=== PATIENT | male | born 1985 | race Two or more races ===

== ENCOUNTER 2020-06-23 16:59 | Outpatient (REF) | payer OTHER, SELFPAY | END 2020-06-23 17:00 | disposition home or self-care (01) | LOC: HO.LAB 16:59 | PROVIDERS: Visit Provider Internal Medicine | DX: Z20.828 Contact with and (suspected) exposure to other viral communicable diseases (principal) | CPT/HCPCS: 87635 ==

== ENCOUNTER 2020-07-28 11:59 | Outpatient (REF) | payer OTHER, SELFPAY | END 2020-07-28 12:00 | disposition home or self-care (01) | LOC: HO.LAB 11:59 | PROVIDERS: PCP Internal Medicine; Visit Provider Internal Medicine | DX: Z20.828 Contact with and (suspected) exposure to other viral communicable diseases (principal) | CPT/HCPCS: C9803; U0003 ==

== ENCOUNTER 2020-08-26 07:21 | Outpatient (REF) | payer OTHER, SELFPAY | END 2020-08-26 07:22 | disposition home or self-care (01) | LOC: HO.LAB 07:21 | PROVIDERS: Visit Provider Internal Medicine | DX: Z20.828 Contact with and (suspected) exposure to other viral communicable diseases (principal) | CPT/HCPCS: C9803; U0003 ==

== ENCOUNTER 2020-09-29 11:48 | Outpatient (REF) | payer OTHER, SELFPAY | END 2020-09-29 11:49 | disposition home or self-care (01) | LOC: HO.LAB 11:48 | PROVIDERS: Visit Provider Internal Medicine | DX: Z20.822 Contact with and (suspected) exposure to COVID-19 (principal) | CPT/HCPCS: 36415; C9803; U0003; U0005 ==

== ENCOUNTER 2021-05-23 09:47 | Outpatient (REF) | payer OTHER, SELFPAY | END 2021-05-23 09:48 | disposition home or self-care (01) | LOC: HO.LAB 09:47 | PROVIDERS: PCP Internal Medicine; Visit Provider Internal Medicine | DX: Z20.822 Contact with and (suspected) exposure to COVID-19 (principal) | CPT/HCPCS: C9803; U0003; U0005 ==

== ENCOUNTER 2021-08-18 21:29 | Emergency (ER) | payer OTHER, SELFPAY ==
[2021-08-18 22:14] VITALS: BP 137/88; PULSE 98; RESP 16; TEMP 36.9; O2SAT 99; BMI 30.7
[2021-08-18 23:11] LABS: COVID-19 Test Positive (Negative)
--- NOTE | 2021-08-18 23:19 | ED_ITS ---
HPI - General Adult General Chief complaint: General Medical Stated complaint: fever, not feeling well Source: patient Mode of arrival: ambulatory Limitations: no limitations History of Present Illness HPI narrative: 36-year-old male presents with upper respiratory symptoms that started on Sunday. Is requesting COVID-19 testing. Onset (ago): day(s) Severity: mild Relieving factors: none Associated symptoms: cough, fever/chills, headaches and malaise Treatments prior to arrival: none Related Data Previous Rx's Medication Instructions Recorded levofloxacin 750 mg tablet 750 mg PO DAILY #10 tab 01/31/21 montelukast 10 mg tablet 10 mg PO DAILY #30 tab 01/31/21 prednisone 10 mg tablet 10 mg PO DAILY #30 tab 01/31/21 Allergies Allergy/AdvReac Type Severity Reaction Status Date / Time penicillin V Allergy Unknown hives Verified 01/31/21 14:35 Review of Systems Review of Systems: Constitutional: positive Fever, positive Chills, positive fatigue, positive Malaise ENT/Mouth: positive sore throat, positive runny nose Eyes: No Discharge Cardiovascular: No Chest Pain, No SOB Respiratory: Positive Cough, No Sputum, No Wheezing, No Smoke Exposure, No Dyspnea Gastrointestinal: No Nausea, No Vomiting, No Diarrhea Genitourinary: no irregular bleeding, No Dysuria, No Urinary Frequency, No Hem aturia, No Urinary Incontinence, No Urgency, No Flank Pain, Musculoskeletal: positive Myalgia Skin: No rash Neuro: Positive Headache Yes all other systems are reviewed and are negative PMFSH Past Medical History Attestation statement: The following information was validated with the patient. Source: old records reviewed Medical History Allergies Annual physical exam Sinusitis Social History Social History Advance Directives: No Physical Exam Vital Signs: Vital Signs: Last Vital Signs Temp 98.4 F 08/18/21 22:14 Pulse 98 08/18/21 22:14 Resp 16 08/18/21 22:14 BP 137/88 08/18/21 22:14 Pulse Ox 99 08/18/21 22:14 BMI result Body Mass Index 30.7 Appearance: Alert. Oriented X3. No acute distress. Eyes: Pupils equal, round and reactive to light. ENT: Pharynx normal. Nasal congestion. Neck: Normal inspection. Neck supple. CVS: Normal heart rate and rhythm. Pulses normal. Respiratory: No respiratory distress. Breath sounds normal. Abdomen: Soft and nontender. Skin: Skin warm and dry. Normal skin color. Normal skin turgor. Extremities: No lower extremity edema. Gait well-balanced well coordinated. Neuro: No motor deficit. No sensory deficit. Cranial nerves 2-12 intact. Course Course Course Narrative: 36-year-old male presents with upper respiratory symptoms consistent COVID-19 that started on Sunday. Requesting COVID-19 testing. COVID positive. Patient is afebrile, vital signs are stable and within normal limits. O2 sat 99% on room air, even unlabored respirations. Able to speak in complete sentences. Appears nontoxic. Will discharge home with supportive measures instructions. Patient verbalized understanding of and agrees to care discharge home. Medical Decision Making Differential Diagnosis Differential Diagnosis: COVID-19, influenza, pharyngitis, pneumonia Medical Records Medical records reviewed: Yes I reviewed the patient's medical records. Lab Data Lab results reviewed: Yes I reviewed the patient's lab results. Labs: Lab Results 08/18/21 Range/Units 22:20 COVID-19 (ANDREAS) Positive A (Negative) COVID-19 Clin Com See Note Discharge Plan Discharge Clinical Impression: COVID-19 Patient Disposition: Home, Self-Care Instructions: Covid-19 Viral Syndrome and Novel Coronavirus (ED) Hey/Ath, COVID-19 (Coronavirus Disease 2019) (ED) Additional Instructions: You were evaluated for upper respiratory symptoms. Your COVID test was positive. Please maintain social isolation per State and Federal guidelines. Use supportive measures, Tylenol 650 mg every 6 hours and Motrin 600 mg every 6 hours as needed for fever and muscle aches. You may consider using [id number] cough medications please pay attention to the ingredients to make sure that you are not overdosing on Tylenol. Tylenol is also called acetaminophen. Drink plenty of fluids. Thank you for choosing this emergency department for evaluation. Please follow-up with primary care physician as needed. Return to the emergency department for any new, concerning, or worsening symptoms. Prescriptions: No Action levofloxacin 750 mg tablet 750 mg PO DAILY Qty: 10 RF: 0 prednisone 10 mg tablet 10 mg PO DAILY Qty: 30 RF: 0 montelukast 10 mg tablet 10 mg PO DAILY Qty: 30 RF: 3 Stand Alone Forms: Work/School Release Interventions: ED Discharge Assessment Last Done: 08/19/21 00:32 Discharge Date/Time: 08/19/21 00:33
== END 2021-08-19 00:33 | disposition home or self-care (01) ==
PROVIDERS: Emergency Provider Internal Medicine; PCP Internal Medicine
DX: U07.1 COVID-19 (principal)
CPT/HCPCS: 36415; 87635; 99283

== ENCOUNTER 2022-08-10 07:18 | Outpatient (REF) | payer OTHER, SELFPAY ==
[2022-08-10 11:26] LABS: MANUAL DIFF FLAG NO
[2022-08-10 11:39] LABS: Basophils Absolute Auto 0.1 X10*3/uL (0.0-0.2); Basophils Percent Auto 0.6 % (0-2); Eosinophils Absolute Auto 0.2 X10*3/uL (0.0-0.4); Eosinophils Percent Auto 2.2 % (0-4); Hematocrit 44.5 % (42.0-52.0); Hemoglobin 15.2 g/dl (14.0-18.0); Imm Gran Abs Auto 0.06 X10*3/uL (0.00-0.03); Imm Gran Pct Auto 0.6 % (0.0-0.4); Lymphocytes Absolute Auto 2.3 X10*3/uL (1.2-4.9); Lymphocytes Percent Auto 24.6 % (20-40); Mean Corpuscular HGB Conc 34.2 g/dl (31.0-36.0); Mean Corpuscular Hemoglobin 29.6 pg (27.0-33.0); Mean Corpuscular Volume 86.7 fL (80.0-98.0); Mean Platelet Volume 10.4 fL (9.4-12.4); Monocytes Absolute Auto 0.7 X10*3/uL (0.1-1.2); Platelet Count 244 X10*3/uL (160-400); Red Blood Count 5.13 X10*6/uL (4.60-5.80); Red Cell Distribution Width 13.2 % (11.0-16.0); White Blood Count 9.3 X10*3/uL (4.8-10.8)
[2022-08-10 13:07] LABS: Alanine Aminotransferase 40 U/L (0-40); Albumin Level 4.2 g/dL (3.5-5.0); Alkaline Phosphatase 62 U/L (39-117); Anion Gap 10 (12-20); Aspartate Amino Transferase 23 U/L (5-37); Bilirubin Total 0.3 mg/dL (0.0-1.0); Blood Urea Nitrogen 13 mg/dL (9-16); Calcium 9.3 mg/dL (8.4-10.2); Carbon Dioxide 28 mmol/L (22-29); Chloride 106 mmol/L (96-108); Cholesterol 225 mg/dL; Estimated Glomerular Filt Rate > 60; Glucose Fasting 96 mg/dL (60-99); HDL Cholesterol 40 mg/dL; LDL Cholesterol Calculated 172 mg/dl; Potassium 4.2 mmol/L (3.3-5.1); Sodium 140 mmol/L (135-145); TSH reflex Free T4 1.64 uIU/mL (0.32-4.0); Total Protein 6.6 g/dL (6.5-8.0); Triglycerides 65 mg/dL
== END 2022-08-10 07:19 | disposition home or self-care (01) ==
LOC: HO.HMGCLDS 07:18
PROVIDERS: PCP Internal Medicine; Visit Provider Internal Medicine
DX: Z00.00 Encounter for general adult medical examination without abnormal findings (principal); E03.9 Hypothyroidism, unspecified
CPT/HCPCS: 36415; 80053; 80061; 84443; 85025

== ENCOUNTER 2022-09-04 08:45 | Outpatient (REF) | payer OTHER, SELFPAY ==
--- NOTE | ~2022-09-04 | XR_ITS ---
EXAMINATION: XR knee LT 2V, XR knee standing BI CLINICAL INFORMATION: Pain in the. History of surgical fixation of distal femoral fracture, left side. COMPARISON: Left femur radiograph 08/04/2019. TECHNIQUE: AP standing bilateral knees and lateral and sunrise view left knee. FINDINGS: AP standing radiograph: Clothing artifact limits detail. The AP view of the right knee is normal without joint space narrowing. The AP view of the left knee shows distal femoral roosevelt and locking screws with mild heterotopic ossification adjacent to the distal femoral screw medially at the level of the medial femoral condyle without change. No significant joint space narrowing is seen but osteophytes are present in the intercondylar notch and at the tibial spines and lateral joint margin. Heterotopic ossification is seen in the soft tissues medial to the proximal tibia. Left knee: Additional views of the left knee partially visualized the distal femoral roosevelt. No joint space narrowing or acute osseous abnormality is seen on the views provided. No evidence of joint effusion. Heterotopic ossification is seen in the soft tissues posterior to the proximal lower leg. XR/XR knee standing BI IMPRESSION: 1. Normal alignment. No acute osseous abnormality is seen. Unchanged degenerative changes are seen in the left knee 2. The right knee is unremarkable.
--- NOTE | ~2022-09-04 | XR_ITS ---
EXAMINATION: XR knee LT 2V, XR knee standing BI CLINICAL INFORMATION: Pain in the. History of surgical fixation of distal femoral fracture, left side. COMPARISON: Left femur radiograph 08/04/2019. TECHNIQUE: AP standing bilateral knees and lateral and sunrise view left knee. FINDINGS: AP standing radiograph: Clothing artifact limits detail. The AP view of the right knee is normal without joint space narrowing. The AP view of the left knee shows distal femoral roosevelt and locking screws with mild heterotopic ossification adjacent to the distal femoral screw medially at the level of the medial femoral condyle without change. No significant joint space narrowing is seen but osteophytes are present in the intercondylar notch and at the tibial spines and lateral joint margin. Heterotopic ossification is seen in the soft tissues medial to the proximal tibia. Left knee: Additional views of the left knee partially visualized the distal femoral roosevelt. No joint space narrowing or acute osseous abnormality is seen on the views provided. No evidence of joint effusion. Heterotopic ossification is seen in the soft tissues posterior to the proximal lower leg. XR/XR knee LT 2V IMPRESSION: 1. Normal alignment. No acute osseous abnormality is seen. Unchanged degenerative changes are seen in the left knee 2. The right knee is unremarkable.
== END 2022-09-04 08:46 | disposition home or self-care (01) ==
LOC: HO.HOSX 08:45
PROVIDERS: Visit Provider Orthopaedic Surgery
DX: M17.32 Unilateral post-traumatic osteoarthritis, left knee (principal)
CPT/HCPCS: 73560; 73565; 99202

== ENCOUNTER → 2023-02-05 12:01 | Outpatient (REF) | payer OTHER, MEDICAID, SELFPAY | LOC: HO.SL 12:01 | PROVIDERS: PCP Internal Medicine; Visit Provider Internal Medicine | DX: R06.81 Apnea, not elsewhere classified (principal) | CPT/HCPCS: 95806 ==

== ENCOUNTER 2025-05-04 15:52 | Emergency (ER) | payer OTHER, SELFPAY ==
--- NOTE | ~2025-05-04 | US_ITS ---
CLINICAL HISTORY: pain, swelling, concern for DVT Venous duplex ultrasound right lower extremity Comparison: None provided Findings: The visualized deep veins are fully compressible with normal Doppler color flow and spectral tracings. No popliteal cyst. Prominent lymph nodes noted in the right groin measuring 3.8 x 0.8 x 2.8 cm, may be reactive however are nonspecific IMPRESSION: 1. Negative for right lower extremity deep vein thrombosis. This document has been electronically signed by: Oliver De Souza MD on 05/04/2025 18:36:38
[2025-05-04 16:19] VITALS: BP 152/91; PULSE 84; RESP 16; TEMP 36.9; O2SAT 99; BMI 33.0
--- NOTE | 2025-05-04 16:19 | ED_ITS ---
HPI - General Adult General Chief complaint: Extremity Injury, Lower Stated complaint: right leg pain (? bloodclot), swollen, red Time Seen by Provider: 05/04/25 18:46 Source: patient Mode of arrival: ambulatory Limitations: no limitations History of Present Illness ED Provider: Debby Purcell PA-C HPI narrative: Patient is a 39 year old assigned male at with a history of anxiety, HLD, allergies, osteoarthritis of knee presenting to the emergency department today with right knee pain. Patient states that the pain is behind his knee and started yesterday. Patient reports his right leg is swollen and red. Patient reports a fever of 101 last night. Patient denies any trauma, injury, or any other symptoms. Related Data Previous Rx's ?Medication ?Instructions ?Recorded doxycycline hyclate 100 mg tablet 100 mg PO BID 7 days #14 tabs 05/04/25 Allergies Allergy/AdvReac Type Severity Reaction Status Date / Time penicillin V Allergy Unknown hives Verified 05/04/25 16:20 Review of Systems Constitutional: Constitutional: Reports as per HPI Eyes: Eyes: Reports as per HPI ENT: Reports as per HPI Cardiovascular: Cardiovascular: Reports as per HPI Respiratory: Respiratory: Reports as per HPI Gastrointestinal: Gastrointestinal: Reports as per HPI Genitourinary: Genitourinary: Reports as per HPI Musculoskeletal: Musculoskeletal: Reports as per HPI Integumentary/Breasts: Skin/Breast: Reports as per HPI Neurologic: Reports as per HPI Psychiatric: Psychiatric: Reports as per HPI Endocrine: Endocrine: Reports as per HPI Hematologic/Lymphatic: Hematologic/Lymphatic: Reports as per HPI Allergic/Immunologic: Allergic/Immunologic: Reports as per HPI [facility] Past Medical History Attestation statement: The following information was validated with the patient. Source: old records reviewed and nursing notes reviewed Medical History Post-traumatic osteoarthritis of knee Annual physical exam Sinusitis Allergies Social History Social History Household Members Other:: , children 7-18, works as adame Housing: House Patient Tobacco Use Status: Never used Tobacco e-Cigarette/Vaping Use: Never Used Current occupational status: employed Current occupation: [employer] Cognitive needs: No Hearing needs: No Vision needs: Yes Physical Exam ED Vital Signs: Vital Signs - 24 hr 05/04/25 16:19 Temperature 98.5 F Pulse Rate 84 Respiratory Rate 16 Blood Pressure 152/91 H Pulse Oximetry 99 Oxygen Delivery Method Room Air BMI result Body Mass Index 33.0 Const General: cooperative, no acute distress, alert and awake Nutritional Appearance: well nourished Orientation/consciousness: patient oriented x3 HENMT Head: Yes normal to inspection and Yes atraumatic Ears: hearing grossly normal bilaterally and external ears normal General nose exam: Normal external nose present, no nasal discharge noted and no epistaxis Face and sinus: Yes normal facial exam, No abrasion and No laceration Mouth: Normal oral and palatal mucosa present, no drooling and no muffled voice Eyes General: appearance normal, both eyes and all related structures Periorbital: periorbital findings normal Eyelids: Yes eyelids normal Conjunctivae: conjunctivae normal Pupils: Equal, round and reactive pupils present EOM: EOMs intact bilaterally Neck Neck: Yes normal visual inspection and Yes full ROM Resp Effort & Inspection: normal respiratory effort and able to speak in complete sentences Neuro General: patient oriented x3, moves all extremities and CN's II-XI intact bilaterally Cranial nerves: Yes Equal, round and reactive pupils present Cognition (Neuro): normal cognition Extrem Other: erythema and warmth present to the medial right upper and lower leg General: Yes full ROM and Yes capillary refill normal Psych Appearance: grossly normal Mental Status: mental status grossly normal Affect: normal affect Attitude: cooperative Thought process: Normal thought process present Thought content: Normal thought content present Insight: Good insight present (Psych) Course Course Course Narrative: Rapid medical examination performed in triage by Debby Purcell PA-C. Patient is a 39 year old assigned male at presenting to the emergency department with right lower leg pain. Patient states that he is concerned he has a DVT in his right lower leg. Detailed physical exam and review of systems are deferred to the nurse charge rn. Imaging ordered. Patient placed back in the waiting room pending room availability and results. Medical Decision Making Medical Decision Making MDM Narrative: Patient is a 39 year old assigned male at with a history of anxiety, HLD, allergies, osteoarthritis of knee presenting to the emergency department today with right knee pain. Patient's physical exam was as noted in the physical exam portion of this note and may represent cellulitis. Patient's RLE US showed no acute process. I explained my physical exam findings as well as all test results to the patient. I answered all questions asked by the patient. Given patient's clinical examination, will treat with antibiotic. Patient's ROM of the right knee is normal - no concern for septic joint or joint involvement. I stressed the importance of the patient taking his medication as directed (either prescribed or as the over the counter packaging recommends). I stressed the importance of the patient following up with his primary care provider. I stressed the importance of the patient returning to the emergency department immediately if his symptoms were to worsen or if he were to develop any dizziness, shortness of breath, difficulty breathing, chest pain, blurry vision, loss of vision, nausea, vomiting, abdominal pain, fever, chills, back pain, or any other complaints. Patient verbalized agreement and understanding with this treatment plan and discharge. Differential Diagnosis Differential Diagnoses: The differential diagnosis associated with the presentation includes Cellulitis Knee pain DVT Admission/Observation Consideration of admission/observation: Escalation of care including admission/observation considered Patient would have been admitted to the hospital had his work up had any findings where hospital admission was appropriate and his clinical presentation warranted hospital admission. Independent Interpretation I performed an independent interpretation of an: Ultrasound Interpretation: My interpretation is in agreement with the radiologist's impression of this imaging study. Reason for Exam: pain, swelling, concern for DVT CLINICAL HISTORY: pain, swelling, concern for DVT Venous duplex ultrasound right lower extremity Comparison: None provided Findings: The visualized deep veins are fully compressible with normal Doppler color flow and spectral tracings.No popliteal cyst. Prominent lymph nodes noted in the right groin measuring 3.8 x 0.8 x 2.8 cm, may be reactive however are nonspecific IMPRESSION: 1. Negative for right lower extremity deep vein thrombosis. This document has been electronically signed by: Oliver De Souza MD on 05/04/2025 18:36:38 Dictated By: Oliver De Souza MD Signed By: Electronically signed by Oliver De Souza MD 05/04/25 1837 Radiology Impression Discussion of test interpretation with radiology: I have reviewed the radiologist's reading. Tests considered The following testing was considered but not selected: I considered obtaining a CBC, CMP, ESR, CRP, and right knee x-ray however - the patient's current clinical presentation did not warrant this. Prescription Management I considered prescription management with: Antibiotic (patient prescribed antibiotic for possible cellulitis of the right leg) Discharge Plan Discharge Clinical Impression: Acute leg pain, Cellulitis Patient Disposition: Home, Self-Care Instructions: Cellulitis (ED) Additional Instructions: Your ultrasound showed no evidence of blood clot. Take your antibiotic as prescribed. IF you are prescribed home medications and/or you are taking over the counter medications at home - it is very important you continue to do so as prescribed / directed unless told otherwise. Follow up with a primary care provider. Return to the emergency department immediately if your symptoms worsen or if you develop any numbness, tingling, dizziness, shortness of breath, difficulty breathing, chest pain, blurry vision, loss of vision, nausea, vomiting, abdominal pain, fever, chills, back pain, or any other complaints. If you do not have a primary care provider - call any of the below numbers to establish and follow up with a primary care provider. [facility] Primary Care ([place]) [phone] [place] [address], [id number] [facility] Primary Care ([address] [place]) [phone] [place] [address], [address] [facility], [address] [facility] Primary Care ([address] [place]) [phone] [place] [address], [address] [facility], [address] [facility] Primary Care ([place]) [phone] [place] [address], [address] [facility], [address] [facility] Family Medicine [phone] [address] [facility], [address] Please see the information below about our Patient Portal. If you are not yet enrolled in the [facility] Patient Portal, you will receive an enrollment email invitation following your visit to any [facility] setting. You may also self-enroll in the Patient Portal by visiting our website: [email or web address] The following information is required to access the Patient Portal: - Your [facility] Medical Record Number - Your personal home email address (must match what is in your electronic medical record, Registration staff can assist with this) - Name - Date of Capabilities of the Patient Portal: - Message some providers - View upcoming appointments - Access your health summary, medical history, and visit history - View current conditions and allergies - View procedure and lab results - View your medications, including guidelines, side effects, and precautions - Complete pre-appointment questionnaires requested by your provider - Ready summary reports of your office visits and procedures To access the Patient Portal Mobile Rj, follow these directions: - Search Text A Cab in the Rj Store or eBrevia Store - Download the Rj - Search for [facility] - Enter your login/password Prescriptions: New doxycycline hyclate 100 mg tablet 100 mg PO BID 7 Days Qty: 14 0RF Referrals: [facility] Orthopedic Surgeons [Provider Group] Referral Note: If you pain persists >2 weeks, call to establish and follow up with the orthopedic team. Discharge Date/Time: 05/04/25 19:01 Print Language: Swedish
--- OUTSIDE RECORDS SUMMARY | 2025-05-04 18:59 | XMS_ITS ---
Author Name [facility] Organization Unknown Care Team Organization Name Specialty Phone Email Start Date End Da te [employer] 06/08/2024 0 12/12/2024
== END 2025-05-04 19:01 | disposition home or self-care (01) ==
LOC: HO.ED 18:55
PROVIDERS: Emergency Provider Emergency Medicine Emergency Medical Services
DX: L03.115 Cellulitis of right lower limb (principal); M79.604 Pain in right leg; M79.89 Other specified soft tissue disorders; E78.5 Hyperlipidemia, unspecified; R50.9 Fever, unspecified
CPT/HCPCS: 93971; 99281; 99284

== ENCOUNTER → 2025-05-04 16:20 | Outpatient (BNV) | payer OTHER, SELFPAY | PROVIDERS: Emergency Provider Emergency Medicine Emergency Medical Services; Visit Provider Radiology Diagnostic Radiology | DX: M79.604 Pain in right leg (principal) | CPT/HCPCS: 93971 ==

== ENCOUNTER 2025-06-04 13:29 | Outpatient (AMB) | payer OTHER, SELFPAY ==
[2025-06-04 13:59] VITALS: BP 110/74; PULSE 82; RESP 18; TEMP 36.9; O2SAT 98; BMI 33.6
--- NOTE | 2025-06-04 13:59 | A.OFFPC_ITS ---
Vital Signs 06/04/25 13:59 Height 5 ft 10 in Weight 234 lb BMI 33.6 BP 110/74 Blood Pressure Location Rt brachial Position Sitting Respiration 18 Pulse 82 Pulse Source Pulse Oximeter Temp 98.4 F Temp Source Oral Pulse Oximetry (%) 98 Oxygen Delivery Method Room Air Intake Visit Reasons: Follow up with DVT concerned Intake Note: Pt is here today for a ER follow up visit. Allergies penicillin V Allergy (Unknown, Verified 06/04/25 13:59) hives Medication List - Last Reconciled 06/04/25 by Kinga Burr MD No Known Home Meds Tobacco use date assessed: 06/04/25 Dental Screening Dental Screen Date: 06/04/25 Did you have a dental visit in the last 12 months?: Yes Did you have a dental problem in the last 6 months where you did not have access to dental care?: No Was dental information given to patient?: Patient has dentist HPI Follow up with DVT concerned HPI Details Pt presents for f/u RLE cellulitis, resolved with oral antibiotic. Pt is concerned about poor venous circulation. [facility] Medical History Post-traumatic osteoarthritis of knee Annual physical exam Sinusitis Allergies Surgical History Hx of knee surgery Family History Father Hypertension Substance use disorder Mother No problems noted. Social History Household Members Other:: , children 7-18, works as [employer] Housing: House Patient Tobacco Use Status: Never used Tobacco e-Cigarette/Vaping Use: Never Used service: No Current occupational status: employed Current occupation: [employer] Cognitive needs: No Hearing needs: No Vision needs: Yes Questionnaire PHQ-9 Over the last 2 weeks, how often have you been bothered by any of the following problems? 1. Little interest or pleasure in doing things: not at all 2. Feeling down, depressed, or hopeless: not at all 3. Trouble falling or staying asleep, or sleeping too much: not at all 4. Feeling tired or having little energy: not at all 5. Poor appetite or overeating: not at all 6. Feeling bad about yourself - or that you are a failure or have let yourself or your family down: not at all 7. Trouble concentrating on things, such as reading the newspaper or watching television: not at all 8. Moving or speaking so slowly that other people could have noticed. Or the opposite - being so fidgety or restless that you have been moving around a lot more than usual: not at all 9. Thoughts that you would be better off or of hurting yourself in some way: not at all Total score: 0 Depression Screening Interpretation: Negative Depression Screening Done: Yes 27602 - PHQ-9 Billing: Yes Source: Developed by Drs. Lloyd Lee, Angela Garcia, Grant Mckeon and colleagues, with an educational liban from [employer]. Thrive Questionnaire Date Thrive assessed: 06/04/25 I am a: Patient What is your living situation today?: I have a steady place to live Within the past 12 months, did the food you bought not last and you didn't have the money to get more?: Never true Within the past 12 months, did you worry whether your food would run out before you got money to buy more?: Never true Do you have trouble paying for medicines?: I choose not to answer this question Do you have trouble getting transportation to medical appointments?: No Do you have trouble paying your heating and electricity bill?: No Do you have trouble taking care of your child, family member or friend?: No Do you have trouble with day-to-day activities such as bathing, preparing meals, shopping, managing finances, etc.?: No Are you currently unemployed and looking for a job?: No Are you interested in more education?: Yes Please select the resources that you would like help with: None Currently or been in a relationship where the following occur: No concerns reported THRIVE Score: 0 AUDIT C Alcohol Use Questionnaire (AUDIT-C) 1. How often do you have a drink containing alcohol?: Never 3. How often do you have six or more drinks on one occasion?: Never Total Score: 0 ABBIE-7 AMB Questionnaire ABBIE-7 Date ABBIE - 7 assessed: 06/04/25 Feeling nervous, anxious, or on edge: 0 = Not at all Not being able to stop or control worryin = Not at all Worrying too much about different things: 0 = Not at all Trouble relaxin = Not at all Being so restless that it is hard to sit still: 0 = Not at all Becoming easily annoyed or irritable: 0 = Not at all Feeling afraid as if something awful might happen: 0 = Not at all Total ABBIE-7 score (0-4 normal; 5-9 mild; 10-14 moderate; 15-21 severe): 0 Source: Developed by Drs. Lloyd Lee, Angela Garcia, Grant Mckeon and colleagues, with an educational liban from [employer]. ABBIE-7 Assessment Billing ABBIE-7 Assessment Tool: ABBIE-7 Assessment 70331 Review of Systems Const All systems reviewed & are unremarkable except as noted in HPI and below Eyes Reports no additional complaints ENT Reports no additional complaints Card Reports no additional complaints Resp Reports no additional complaints GI Reports no additional complaints Reports no additional complaints Physical exam (Primary Care) Vital Signs: Last Vital Signs Temp 98.4 F 06/04/25 13:59 Pulse 82 06/04/25 13:59 Resp 18 06/04/25 13:59 BP 110/74 06/04/25 13:59 Pulse Ox 98 06/04/25 13:59 Oxygen Delivery Method Room Air 06/04/25 13:59 BMI result Body Mass Index 33.6 Tobacco/Smoking Status: Tobacco use Status Tobacco use date assessed 06/04/25 06/04/25 14:00 Patient Tobacco Use Status Never used Tobacco 06/04/25 13:59 e-Cigarette/Vaping Use Never Used 06/04/25 13:59 PHQ-9: PHQ-9 Score PHQ-9: Total score 0 06/04/25 14:00 Depression Screening Interpretation: Negative Thrive Assessment: Date of Thrive Assessment Date Thrive assessed 06/04/25 06/04/25 14:00 Currently or been in a relationship where the following occur: No concerns reported Const General: no acute distress HENMT Head: Yes normal to inspection Eyes General: appearance normal, both eyes and all related structures Resp Effort & Inspection: normal respiratory effort Auscultation: clear to auscultation bilaterally Cardio Rhythm: regular rhythm Heart sounds: S1 normal heart sound present and S2 normal heart sound present Extrem General: Yes no clubbing, cyanosis or edema Coding Level of Care Code Est Pt Level 3 (59118) Diagnoses Venous insufficiency of both lower extremities I87.2 Hyperlipidemia E78.5 Additional Codes ABBIE-7 Assessment Billing - ABBIE-7 Assessment Tool: ABBIE-7 Assessment 22357 ([id number]) PHQ-9 - 88108 - PHQ-9 Billing: Yes ([id number]) Assessment & Plan Assessment & Plan (1) Venous insufficiency of both lower extremities: Code(s): I87.2 - Venous insufficiency (chronic) (peripheral) Category: Medical Plan: obtain venous doppler to evaluate for venous insufficiency (2) Hyperlipidemia: Code(s): E78.5 - Hyperlipidemia, unspecified Category: Medical Plan: low cholesterol diet, regular exercise, return for PE and fasting labs Orders: Orders US venous insuf bilat Today I87.2 - Venous insufficiency (chronic) (peripheral) Complete Blood Count Auto Diff Today E78.5 - Hyperlipidemia, unspecified, Z00.00 - Encounter for general adult medical examination without abnormal findings PSA,Total (Free>4and<10) Today E78.5 - Hyperlipidemia, unspecified, Z00.00 - Encounter for general adult medical examination without abnormal findings Comprehensive [place]. Panel Fast Today E78.5 - Hyperlipidemia, unspecified, Z00.00 - Encounter for general adult medical examination without abnormal findings Lipid Panel Today E78.5 - Hyperlipidemia, unspecified, Z00.00 - Encounter for general adult medical examination without abnormal findings UA w Microscopic Today E78.5 - Hyperlipidemia, unspecified, Z00.00 - Encounter for general adult medical examination without abnormal findings
== END 2025-06-04 15:12 | disposition home or self-care (01) ==
LOC: HO.HMCC 13:30
PROVIDERS: Visit Provider Internal Medicine
DX: I87.2 Venous insufficiency (chronic) (peripheral) (principal); E78.5 Hyperlipidemia, unspecified

== ENCOUNTER → 2025-06-04 13:29 | Outpatient (BNVA) | payer OTHER, SELFPAY | PROVIDERS: Visit Provider Internal Medicine | DX: I87.2 Venous insufficiency (chronic) (peripheral) (principal); E78.5 Hyperlipidemia, unspecified | CPT/HCPCS: 96127; 99212 ==

== ENCOUNTER 2025-07-13 08:38 | Outpatient (REF) | payer OTHER, SELFPAY ==
--- NOTE | ~2025-07-13 | US_ITS ---
EXAMINATION: US LOWER EXTREMITY VENOUS (REFLUX EXAM), BILATERAL CLINICAL INFORMATION: I 87.2. COMPARISON: Correlated to the ED ultrasound right lower extremity dated May 04, 2025 and DVT ultrasound left lower extremity dated May 04, 2006. TECHNIQUE: Color flow triplex imaging and compression Doppler was performed to evaluate both the deep and the superficial systems bilaterally. To evaluate the superficial system, the examination was performed in the upright position. Color-flow Doppler ultrasound and compression ultrasound were utilized. In addition, maneuvers were utilized to demonstrate reflux. FINDINGS: 1. DEEP VENOUS ULTRASOUND OF THE RIGHT LOWER EXTREMITY: Common Femoral Vein: Compressible, normal respiratory variation and augmented flow. Femoral Vein: Compressible, normal color flow and augmentation. Popliteal Vein: Compressible, normal augmentation. Deep Reflux: There is no evidence of reflux in the deep system in either the common femoral vein, superficial femoral or the popliteal vein. There is no evidence of a Westbrook's cyst. 2. SUPERFICIAL ULTRASOUND WITH DOPPLER OF RIGHT LOWER EXTREMITY: GREAT SAPHENOUS VEIN: Saphenofemoral Junction: 0.5 cm; Reflux: 0 ms Proximal Thigh: 0.3 cm; Reflux: 2744 ms Mid Thigh: 0.1 cm; Reflux: 0 ms Distal Thigh: 0.2 cm; Reflux: 1152 ms At Knee: 0.3 cm; Reflux: 2528 ms Proximal Calf: 0.2 cm; Reflux: 0 ms Mid Calf: 0.2 cm; Reflux: 668 ms Distal Calf: 0.3 cm; Reflux: 0 ms DUPLICATED MEDIAL GREAT SAPHENOUS VEIN: Diameter: None imaged Reflux: NA DUPLICATED LATERAL GREAT SAPHENOUS VEIN: Diameter: 0.4-0.3 cm. Reflux: 2360 ms in the mid thigh. SMALL SAPHENOUS VEIN: Saphenopopliteal Junction: 0.2 cm; Reflux: 0 ms Proximal: 0.1 cm; Reflux: 0 ms Distal: 0.3 cm; Reflux: 0 ms VEIN OF GIACOMINI: Size: NA Reflux: NA PERFORATORS: Location: Small saphenous vein, mid segment. Proximal calf. Size: 0.2 and 0.1 cm. Reflux: NA VARICOSITIES: Location: Accessory saphenous vein, proximal segment to great saphenous vein mid calf. Size: [0.4 cm. Reflux: 2740 ms. 3. DEEP VENOUS ULTRASOUND OF THE LEFT LOWER EXTREMITY: Common Femoral Vein: Compressible, normal respiratory variation and augmented flow. Femoral Vein: Compressible, normal color flow and augmentation. Popliteal Vein: Compressible, normal augmentation. Deep Reflux: There is no evidence of reflux in the deep system in either the common femoral vein, superficial femoral or the popliteal vein. There is no evidence of a Westbrook's cyst. 4. SUPERFICIAL ULTRASOUND WITH DOPPLER OF LEFT LOWER EXTREMITY: GREAT SAPHENOUS VEIN: Saphenofemoral Junction: 0.5 cm; Reflux: 0 ms Proximal Thigh: 0.2 cm; Reflux: 0 ms Mid Thigh: 0.1 cm; Reflux: 0 ms Distal Thigh: 0.1 cm; Reflux: 292 ms At Knee: 0.1 cm; Reflux: 0 ms Proximal Calf: 0.2 cm; Reflux: 0 ms Mid Calf: 0.2 cm; Reflux: 708 ms Distal Calf: 0.2 cm; Reflux: 0 ms DUPLICATED MEDIAL GREAT SAPHENOUS VEIN: Diameter: None imaged Reflux: NA DUPLICATED LATERAL GREAT SAPHENOUS VEIN: Diameter: 0.2 cm. Reflux: NA SMALL SAPHENOUS VEIN: Saphenopopliteal Junction: 0.2 cm; Reflux: 0 ms Proximal: 0.2 cm; Reflux: 0 ms Distal: 0.2 cm; Reflux: 0 ms VEIN OF GIACOMINI: Size: NA Reflux: NA PERFORATORS: Location: Distal calf. Size: 0.2 cm. Reflux: NA VARICOSITIES: Location: None Imaged Size: NA Reflux: NA US/US venous insuf bilat IMPRESSION: Right: Venous insufficiency, great saphenous vein in the proximal thigh and from above the knee to the mid calf. Venous insufficiency in the lateral accessory saphenous vein at the mid thigh. Varices with reflux from the proximal segment of the accessory saphenous vein to the mid calf of the great saphenous vein. Perforators without reflux. Left: Venous insufficiency, great saphenous vein, at both the knee and mid calf. Perforators without reflux. Electronically signed by: Jong Chaves MD 07/13/2025 11:46 AM KEVIN
[2025-07-13 10:07] LABS: MANUAL DIFF FLAG NO
[2025-07-13 10:41] LABS: Hematocrit 47.9 % (42.0-52.0); Hemoglobin 16.4 g/dl (14.0-18.0); Imm Gran Abs Auto 0.01 X10*3/uL (0.00-0.03); Imm Gran Pct Auto 0.1 % (0.0-0.4); Lymphocytes Absolute Auto 1.7 X10*3/uL (1.2-4.9); Mean Corpuscular HGB Conc 34.2 g/dl (31.0-36.0); Mean Corpuscular Hemoglobin 30.6 pg (27.0-33.0); Mean Corpuscular Volume 89.4 fL (80.0-98.0); NRBC Abs Auto 0.000 X10*3/uL (0.0-0.012); NRBC Pct Auto 0.0 /100WBC (0.0-0.2); Platelet Count 234 X10*3/uL (160-400); Red Blood Count 5.36 X10*6/uL (4.60-5.80); White Blood Count 7.5 X10*3/uL (4.8-10.8)
[2025-07-13 11:35] LABS: Alanine Aminotransferase 86 U/L (0-40); Albumin Level 4.7 g/dL (3.5-5.0); Alkaline Phosphatase 65 U/L (39-117); Anion Gap 11 (12-20); Aspartate Amino Transferase 43 U/L (5-37); Blood Urea Nitrogen 13 mg/dL (9-16); Calcium 9.4 mg/dL (8.4-10.2); Carbon Dioxide 28 mmol/L (22-29); Chloride 106 mmol/L (96-108); Cholesterol 242 mg/dL (<200); Estimated Glomerular Filt Rate > 60; HDL Cholesterol 50 mg/dL (>40); Potassium 4.3 mmol/L (3.3-5.1); Sodium 141 mmol/L (135-145); Total Protein 7.3 g/dL (6.5-8.0); Triglycerides 65 mg/dL (<150)
[2025-07-13 11:41] LABS: PSA,Total (Free>4and<10) 1.22 ng/mL (0.00-4.00)
[2025-07-13 11:42] LABS: Appearance Urine Clear; Glucose Urine UA Negative (Negative); PH 7.0 (5.0-9.0); Specific Gravity - Urine 1.020 (1.005-1.025)
== END 2025-07-13 08:39 | disposition home or self-care (01) ==
LOC: HO.US 08:38
PROVIDERS: PCP Internal Medicine; Visit Provider Internal Medicine
DX: Z00.00 Encounter for general adult medical examination without abnormal findings (principal); I87.2 Venous insufficiency (chronic) (peripheral); E78.5 Hyperlipidemia, unspecified
CPT/HCPCS: 36415; 80053; 80061; 81001; 84153; 85025; 93970

== ENCOUNTER → 2025-07-13 08:40 | Outpatient (BNV) | payer OTHER, SELFPAY | PROVIDERS: PCP Internal Medicine; Visit Provider Radiology Diagnostic Radiology | DX: I87.2 Venous insufficiency (chronic) (peripheral) (principal) | CPT/HCPCS: 93970 ==